=== PATIENT | female | born 1950 | race Caucasian/White ===

== ENCOUNTER → 2016-12-05 | Outpatient (CLI) | payer OTHER ==
[~2016-12-05] MED LIST: ATV1 PO; B-COCAP2 PO; CYM60 PO; DRV100 PO; GABA1CAP PO; GLC500 PO; LEVO75TA5 PO; LSX20; MULT-506 PO; NORT25CA PO; NRN/300 PO; PREG1CAP28 PO; PRLSR20 PO; SIMV10TA5 PO; SNQ10 PO; TRAM-10 PO; ZCRUNK; ZNTT/150 PO; [UNRECOGNIZED DRUG - OTHER]
[2016-12-05 14:23] LABS: BASO % 0.2 %; BASO ABS # 0.01 K/uL (0-0.2); COMPLETE YES; EOS % 3.4 %; LYMPH % 33.1 %; LYMPH ABS # 1.48 K/uL (1.2-3.4); MEAN CELL VOLUME 88.9 fL (80-100); MEAN CORPUSCULAR HEMOGLOBIN 29.3 pg (25-34); MEAN PLATELET VOLUME 9.8 fL (7.4-10.4); MONO % 8.3 %; PLATELET COUNT 281 K/uL (130-400); WHITE BLOOD COUNT 4.47 K/uL (4.8-10.8)
[2016-12-05 14:33] LABS: BLOOD UREA NITROGEN 12 mg/dl (7-18); GLUCOSE 88 mg/dl (70-99)
[2016-12-05 14:34] LABS: ALT/SGPT 27 U/L (12-78); AST/SGOT 17 U/L (15-37); BUN/CREATININE RATIO 15.2 (10-20); CALCIUM 9.2 mg/dl (8.5-10.1); CARBON DIOXIDE 29 mmol/L (21-32); CHLORIDE 103 mmol/L (98-107); CHOLESTEROL 168 mg/dl (0-200); CREATININE 0.81 mg/dl (0.60-1.20); MAGNESIUM 2.1 mg/dl (1.8-2.4); POTASSIUM 3.7 mmol/L (3.5-5.1); SODIUM 138 mmol/L (136-145); TRIGLYCERIDES 115 mg/dl (0-150); VERY LOW DENSITY LIPOPROT CALC 23 mg/dl
[2016-12-05 14:41] LABS: ALKALINE PHOSPHATASE 75 U/L (45-117); CHOLESTEROL/HDL RATIO 2.7; HDL CHOLESTEROL 62 mg/dl; LDL CHOLESTEROL CALCULATED 83 mg/dl; THYROID STIMULATING HORMONE 0.546 uIu/ml (0.300-4.500)
[2016-12-05 14:47] LABS: ESTIMATED AVERAGE GLUCOSE 114 mg/dl; HA1C FLAG Normal (Normal)
--- NOTE | 2017-01-04 09:00 | CODING QUERY MEDICAL NECESSITY ---
CQSUPPORTING DIAGNOSIS NEEDED A supporting diagnosis is required for the test/procedure performed on this patient in order for us to be reimbursed by the patient's insurance. Please provide a supporting diagnosis for the following test/procedure listed below next to the test name along with your signature. *If there is no additional diagnosis for this patient that would support the following test/procedure please document that below next to the test/procedure. Test(s)/Procedure(s) that require a supporting diagnosis: DOS 12/05/16 GLYCATED HEMOGLOBIN TEST Provider Signature: Date: Thank you Nilda Vázquez Health Information Management Once completed, please kindly fax back to [phone] For questions please call [phone]
== END | disposition home or self-care (01) ==
LOC: C.LABBC 10:35
PROVIDERS: ATTEND Nurse Practitioner Family
DX: K21.0 Gastro-esophageal reflux disease with esophagitis (principal); E88.81 Metabolic syndrome and other insulin resistance; E04.9 Nontoxic goiter, unspecified; E78.00 Pure hypercholesterolemia, unspecified; E03.9 Hypothyroidism, unspecified; G62.9 Polyneuropathy, unspecified

== ENCOUNTER → 2016-12-21 | Day surgery (SDC) | payer OTHER ==
[~2016-12-21] VITALS: Ht 157.5 cm; Wt 93.0 kg
[~2016-12-21] MED LIST changes: +FENTANYL CITRATE INJ 50 MCG/1 ML 2 ML VIAL ONE; +HEPARIN SOD (PORCINE) 1000 UNIT/ML 10 ML VIAL ONE; +MIDAZOLAM HCL 1 MG/ML 2ML VIAL ONE; +NITROGLYCERIN/D5W 100MCG/ML 20ML SYR ONE; +NiCARDipine HCL INJ 2.5 MG/ML 10 ML AMP ONE
[2016-12-21 11:08] VITALS: BP 155/75; PULSE 82; TEMP 36.5; O2SAT 95; Ht 157.5 cm; Wt 93.0 kg
--- NOTE | 2016-12-21 13:11 | History & Physical Bridge Note ---
H&P Re-Evaluation Bridge Note: I have examined the patient, reviewed the History & Physical and in the interval since the performance of the History & Physical I have noted the following changes of clinical significance: No changes noted
--- NOTE | 2016-12-21 13:11 | Procedure Note ---
Pre-Mod Sedation Assessment General Date of Moderate Sedation: Dec 21, 2016. Vital Signs: Vital Signs Past 12 Hours Date Time Temp Pulse Resp B/P (MAP) Pulse Ox O2 Delivery O2 Flow Rate FiO2 12/21/16 13:00 78 16 137/80 (99) 98 Room Air 12/21/16 11:08 36.5 82 16 155/75 95 Room Air Review Cardiovascular: regular rate, rhythm, no edema Abdomen: normal bowel sounds, non tender Lungs: chest non-tender, lungs clear Airway Class: II Pre-Sedation Airway Assessment Oral Cavity: WNL Able to Visualize Vocal Cords: No Short Thick Neck: No Hx of Sleep Apnea: No Smoking Status: Never Smoker Mallampati Classification: Class III ASA Classification: Class II Procedure Planning Contraindications-for Mod Sed: None Yes Notes The planned sedation has been discussed with the patient and consent obtained. I have identified the patient, determined the appropriateness of sedation and have assessed the patient immediately prior to the procedure. All medicine(s) and interventions are by my order.
--- NOTE | 2016-12-21 13:12 | Procedure Note ---
Post-Mod Sedation Assessment General Date of Moderate Sedation Dec 21, 2016. Vital Signs: Vital Signs Past 12 Hours Date Time Temp Pulse Resp B/P (MAP) Pulse Ox O2 Delivery O2 Flow Rate FiO2 12/21/16 13:00 78 16 137/80 (99) 98 Room Air 12/21/16 11:08 36.5 82 16 155/75 95 Room Air Review - Discharge Criteria Vital Signs Stable: Yes Alert/Oriented/Conversant: Yes Returned to Baseline Mental St: Yes Nausea Absent/Minimal: Yes Pain/Discomfort/Absent/Minimal: Yes Normal/Baseline Respirations: Yes Active Bleeding?: No Pt Received D/C Instructions: N/A Prescriptions Given: None Specific Proced. D/C Criteria Distal Pulses Present (Cardiac: Yes Groin site assessed-Card Cath: N/A Voided Prior To Discharge: N/A Discharged Patients Adult Escort/Transportation: Yes
--- NOTE | 2016-12-21 13:20 | Cardiac Catheterization ---
Procedure Note Procedure Date Dec 21, 2016. Pre-Procedure Diagnosis Positive Stress Test AUC Score 7 Post-Procedure Diagnosis Normal Coronary Arteries, Normal Intracardiac Pressures Procedure(s) Performed Coronary Angiography, Left Heart Cath Director Emergency Services Zachery Liner Helper(s) Juan Luis Estimated Blood Loss 10 Medication(s) Fentanyl, Heparin, Nitroglycerin, Versed, Lidocaine 1% Summary of Findings Indication: Dyspnea on exertion, Abnormal stress test Access: 6Fr Slender Right Radial Artery Catheters: [place], JR4 Findings: LM - Short left main, angiographically normal LAD - Moderate caliber vessel, angiographically normal Circumflex - Large caliber vessel, luminal irregularities proximally before gives off 2 OMs without significant disease. RCA - Dominant, moderate caliber vessel, luminal irregularities proximally LVEDP - 8 Arterial Closure: TR Band Summary: 1. Essentially normal coronary arteries 2. Normal intracardiac filling pressures Recommendations: Continued ASCVD risk factor modification Follow-up with primary care for further evaluation of non-cardiac causes of chest pain Hemodynamics Rest Ao: 114/65/88 Final Ao: 121/62/90 LV: 126/8 Recommendations Medical therapy and/or Counseling Specimens None Radiation Exposure (mGy) 748 Contrast (mls) 25 Fluids (cc crystalloids) 65 Drains None Anesthesia Moderate Procedural Complication(s) None Disposition Car Rental Deliverer Holding/Recovery ACC Data Cardiac Status Clinical evaluation leading to the procedure CAD Presntation: Positive Stress Test Anginal Classification: CCS III Heart Failure: No, NYHA Class: CCS I Cardiogenic Shock w/in 24Hrs: No Cardiac Arrest w/in 24Hrs: No Imaging studies past 6 months: Yes Stress studies past 6 months: Yes Stress Echocardiogram: Yes - Indeterminant Coronary Anatomy Dominant: Right Left Main (% Stenosis): Normal LAD (% Stenosis): Normal Circumflex (% Stenosis): Normal RCA (% Stenosis): Normal Diagnostic Physician's Name: Rip Bingham MD Status: Elective Closure Device Percutaneous Entry Location: Radial Closure Device: Radial Band Recommendations: Medical therapy and/or Counseling Intraprocedure Events Significant Dissection: No Perforation: No
--- NOTE | 2016-12-21 13:22 | Discharge Instructions ---
Discharge Instructions Procedure Procedure Date: Dec 21, 2016. Reason for Visit: Abnormal Stress Test Dr. Bingham To Do. Discharge Discharge Date: Dec 21, 2016. Discharge Diagnosis: Normal coronary arteries Last Recorded Wt (Kilograms): 93 Anesthesia Post Anesthesia Instructions: If you have had General Anesthesia or IV Sedation: * Do not drive today. * Resume driving when surgeon permits. * Do not make important decisions or sign legal documents today. * Call surgeon for: 1. Temperature elevations greater than 101 degrees F. 2. Uncontrollable pain. 3. Excessive bleeding. 4. Persistent nausea and vomiting. 5. Medication intolerance (nausea, vomiting or rash). * For nausea and vomiting use only clear liquids such as: tea, soda, bouillon until nausea subsides, then gradually increase diet as tolerated. * If you have any concerns or questions, call your surgeon's office. If physician is unavailable and it is an emergency, call 911 or go to the nearest emergency room. Instructions Activity Recommendations: limitations as noted below Recommended Home Diet: resume previous diet, diabetes diet Allergies: Coded Allergies: Meperidine (Verified Allergy, Intermediate, Rash/Some respiratory compromise, 08/03/11) Oxycodone (Verified Adverse Reaction, Mild, Itching, 08/03/11) Follow Up Additional Instructions: ACTIVITY RECOMMENDATIONS: It is common to feel weak and fatigue for a few days. * Do not drive or operate any motorized equipment for the next 2 days. * Limit stair usage (2 or 3 trips a day only) for the next 2 days. * Do not lift anything heavier than 10 pounds for the next three days. * Do not engage in vigorous exercise or any sports for the next five days. * You may shower the day after your procedure, but do not immerse the area for three days. Cleanse the site gently with soap and water. SPECIAL CARE INSTRUCTIONS: * You may replace the pressure dressing or band-aid the morning after the procedure. * After your procedure, it is normal to have a small bruise or small lump at the site. Examine your site daily for any change in the bruise or lump, redness, swelling, drainage or numbness. Notify your doctor if any change. BLEEDING: * If there is a small amount of bleeding at the site, lie down and apply firm pressure with a clean cloth for ten minutes. When the bleeding stops, lie quietly keeping the procedure limb straight for six hours. Notify your doctor as soon as possible. * If the bleeding does not stop after ten minutes or if there is a large amount of bleeding or spurting, call 911 immediately. Continue to lie down and hold firm pressure until help arrives. SKIN IRRITATION: * You may experience some redness and/or swelling in the area where radiation was administered. If any skin irritation occurs, please contact your family physician. FOLLOW UP VISIT: Keep any scheduled doctor appointments. Follow-up with: Primary care within next month Luis Alberto Wood Recommendations: Call your doctor if: * Temperature above 101 degrees * Pain not relieved by pain medicine ordered * There is increased drainage or redness from any incision * You have any unanswered questions or concerns. Your Doctors Instructions noted above were prepared by provider Eamon Bingham. Patient Signature Section: Patient Instructions Signature Page Margaret Kapoor Patient (or Guardian) Signature/Date: I have read and understand the instructions given to me by my caregivers. Caregiver/RN/Doctor Signature/Date: The above-named patient and/or guardian has received patient instructions on this date. + Original Patient Signature Page (only) stays with chart. Please make copy for patient.
[2016-12-21 16:00] VITALS: BP 115/62; PULSE 72; O2SAT 98
== END | disposition home or self-care (01) ==
LOC: C.CATH 10:20
PROVIDERS: ATTEND Internal Medicine Interventional Cardiology
DX: I20.8 Other forms of angina pectoris (principal); R07.9 Chest pain, unspecified; E88.81 Metabolic syndrome and other insulin resistance; E78.00 Pure hypercholesterolemia, unspecified; I10 Essential (primary) hypertension; F41.9 Anxiety disorder, unspecified; M79.7 Fibromyalgia; G62.9 Polyneuropathy, unspecified; K21.9 Gastro-esophageal reflux disease without esophagitis; E03.9 Hypothyroidism, unspecified; Z85.3 Personal history of malignant neoplasm of breast; Z80.6 Family history of leukemia; Z80.3 Family history of malignant neoplasm of breast; Z83.49 Family history of other endocrine, nutritional and metabolic diseases; Z79.84 Long term (current) use of oral hypoglycemic drugs

== ENCOUNTER → 2017-04-30 | Outpatient (CLI) | payer OTHER ==
[~2017-04-30] MED LIST changes: -ATV1 PO; -B-COCAP2 PO; -CYM60 PO; -DRV100 PO; -FENTANYL CITRATE INJ 50 MCG/1 ML 2 ML VIAL ONE; -GLC500 PO; -HEPARIN SOD (PORCINE) 1000 UNIT/ML 10 ML VIAL ONE; -LSX20; -MIDAZOLAM HCL 1 MG/ML 2ML VIAL ONE; -MULT-506 PO; -NITROGLYCERIN/D5W 100MCG/ML 20ML SYR ONE; -NiCARDipine HCL INJ 2.5 MG/ML 10 ML AMP ONE; -PREG1CAP28 PO; -SNQ10 PO; -ZCRUNK; -[UNRECOGNIZED DRUG - OTHER]
== END | disposition home or self-care (01) ==
LOC: C.LABBC 13:52
PROVIDERS: ATTEND Nurse Practitioner Family
DX: E03.9 Hypothyroidism, unspecified (principal)

== ENCOUNTER → 2017-05-24 | Day surgery (SDC) | payer OTHER ==
[2017-05-09 11:35] VITALS: BMI 36.0
[~2017-05-24] VITALS: Ht 157.5 cm; Wt 90.9 kg
[~2017-05-24] MED LIST changes: +ACET325T96 PO; +ASCA500 PO; +CHOL400T5 PO; +CYAN100020 PO; +GLC/500 PO; +LIDOCAINE HCL 2% 2 ML VIAL (20MG/ML) ONE; -NRN/300 PO; -PRLSR20 PO; +PROPOFOL IV EMULSION 10 MG/ML 20 ML VIAL IV ONE; +SODIUM CHLORIDE 0.9% 500ML 500 ML IV ONE; +THIA100T11 PO; -TRAM-10 PO; +VITATAB19 PO
[2017-05-24 12:37] VITALS: Ht 157.5 cm; Wt 90.9 kg
--- NOTE | 2017-05-24 13:03 | Endo History and Physical ---
History & Physical Date of Service: May 24, 2017. Chief Complaint: Epigastric pain Referring Physician: Ty Chan History of Present Illness 66 yo CF who presents for EGD secondary to epigastric abdominal pain. Past Surgical History Hx Cardiac Surgery: Yes (CARDIAC CATH NO STENT-12/2106) Hx Internal Defibrillator: No Hx Abdominal Surgery: Yes (CHOLECYSTECTOMY; APPENDECTOMY; HYSTERECTOMY.) Hx Post-Op Nausea and Vomiting: Yes (PONV) Hx Cancer Surgery: Yes (DOUBLE MASTECTOMY "IN THE 70'S", ) Hx Thoracic Surgery: No Hx Orthopedic: Yes ("WRIST AND KNEE SURGERY") Hx Urinary Tract Surgery: No Social History Smoking Status: Never Smoker Hx Substance Use: No Hx Alcohol Use: No Allergies Coded Allergies: Meperidine (Verified Allergy, Intermediate, Rash/Some respiratory compromise, 05/09/17) Oxycodone (Verified Adverse Reaction, Mild, Itching, 05/09/17) Current Medications Reported Home Medications Medications Dose Route/Sig Max Daily Dose Days Date Category Dose Instructions Glucophage (Metformin Hcl) 500 Mg Tab 500 Mg PO BID 05/09/17 Reported Tylenol (Acetaminophen) 325 Mg Tab 650 Mg PO HS 05/09/17 Reported Pamelor (Nortriptyline HCl) 25 Mg Cap 50 Mg PO HS 12/21/16 Reported Neurontin (Gabapentin) 100 Mg Cap 1 Cap PO HS 30 12/21/16 Reported Take with 300mg cap at bedtime for total of 400 mg Levothyroxine Sodium 75 Mcg Tab 1 Tab PO QAM 30 12/21/16 Reported Zocor (Simvastatin) 10 Mg Tab 1 Tab PO HS 30 12/21/16 Reported Zantac (Ranitidine HCl) 150 Mg Tab 150 Mg PO BID 06/14/09 Reported Vital Signs Weight (Kilograms): 90.91 Height (Feet): 5 Height (Inches): 2 Physical Exam General Appearance: WD/WN, no apparent distress Respiratory/Chest: Auscultation: breath sounds normal Cardiovascular: Heart Auscultation: RRR Abdomen: Bowel Sounds: normal Inspection & Palpation: soft, non-distended, no tenderness, guarding & rebound Assessment and Plan Assessment: 66 yo CF who presents for EGD secondary to epigastric abdominal pain. Plan: Proceed with EGD.
--- NOTE | 2017-05-24 13:25 | GI REPORT ---
Procedure Date: 05/24/2017 1:08 PM Procedure: Upper GI endoscopy Indications: Epigastric abdominal pain, Chest pain (non cardiac) Medicines: Monitored Anesthesia Care Complications: No immediate complications. Estimated Blood Loss: Estimated blood loss: none. Procedure: Pre-Anesthesia Assessment: - Prior to the procedure, a History and Physical was performed, and patient medications and allergies were reviewed. The patient's tolerance of previous anesthesia was also reviewed. The risks and benefits of the procedure and the sedation options and risks were discussed with the patient. All questions were answered, and informed consent was obtained. Prior Anticoagulants: The patient has taken no previous anticoagulant or antiplatelet agents. ASA Grade Assessment: III - A patient with severe systemic disease. After reviewing the risks and benefits, the patient was deemed in satisfactory condition to undergo the procedure. After obtaining informed consent, the endoscope was passed under direct vision. Throughout the procedure, the patient's blood pressure, pulse, and oxygen saturations were monitored continuously. The Scope was introduced through the mouth, and advanced to the second part of duodenum. The upper GI endoscopy was accomplished without difficulty. The patient tolerated the procedure well. Findings: The esophagus was normal. A small hiatal hernia was present. Localized moderate inflammation characterized by erythema was found in the gastric antrum. Biopsies were taken with a cold forceps for histology. The examined duodenum was normal. Impression: - Normal esophagus. - Small hiatal hernia. - Gastritis. Biopsied. - Normal examined duodenum. Recommendation: - Resume previous diet. - Continue present medications. - Await pathology results. - Return to primary care physician as previously scheduled. Sumit Sultana, 05/24/2017 1:25:30 PM This report has been signed electronically. Note Initiated On: 05/24/2017 1:08 PM I attest to the content of the Intraoperative Record and orders documented therein, exceptions below
--- NOTE | 2017-05-24 13:29 | Discharge Instructions ---
Endoscopy Patient Instructions Date / Procedure(s) Performed May 24, 2017. EGD Allergy Information Coded Allergies: Meperidine (Verified Allergy, Intermediate, Rash/Some respiratory compromise, 05/09/17) Oxycodone (Verified Adverse Reaction, Mild, Itching, 05/09/17) Discharge Date / Findings May 24, 2017. Gastritis s/p biopsies Hiatal hernia Medication Instructions 1) Start Pantoprazole 40mg by mouth each morning 1/2 hour prior to breakfast. 2) Take Ranitidine 150mg by mouth each evening prior to bedtime 3) OK to resume all other medications today as prescribed Reported Home Medications Medications Dose Route/Sig Max Daily Dose Days Date Category Dose Instructions Vitamin B12 (Cyanocobalamin) 1,000 Mcg Tab 1,000 Mcg PO DAILY 05/24/17 Reported Vitamin D (Cholecalciferol) 400 Unit Tab 400 Mg PO DAILY 05/24/17 Reported Vitamin C (Ascorbic Acid) 500 Mg Tab 500 Mg PO DAILY 05/24/17 Reported Vitamin B-1 (Thiamine HCl) 100 Mg Tab 100 Mg PO DAILY 05/24/17 Reported Vitamin A (Vitamin A-Beta Carotene) 1 Tab Tab 1 Tab PO DAILY 05/24/17 Reported Glucophage (Metformin Hcl) 500 Mg Tab 500 Mg PO BID 05/09/17 Reported Tylenol (Acetaminophen) 325 Mg Tab 650 Mg PO HS 05/09/17 Reported Pamelor (Nortriptyline HCl) 25 Mg Cap 50 Mg PO HS 12/21/16 Reported Neurontin (Gabapentin) 100 Mg Cap 1 Cap PO HS 30 12/21/16 Reported Take with 300mg cap at bedtime for total of 400 mg Levothyroxine Sodium 75 Mcg Tab 1 Tab PO QAM 30 12/21/16 Reported Zocor (Simvastatin) 10 Mg Tab 1 Tab PO HS 30 12/21/16 Reported Zantac (Ranitidine HCl) 150 Mg Tab 150 Mg PO BID 06/14/09 Reported Provider Instructions Activity Restrictions - No exercising or heavy lifting for 24 hours. - Do not drink alcohol the day of the procedure. - Do not drive a car or operate machinery until the day after the procedure. - Do not make any important decisions or sign important papers in 24 hours after the procedure. Following Day: - Return to full activity which may include returning to work/school. Diet Start your diet with liquids and light foods (jello, soup, juice, toast). Then eat your usual diet if not nauseated. Treatment For Common After Affects For mild abdominal pain, bloating, or excessive gas: - Rest - Eat lightly - Lie on right side Follow-Up Information Follow-up with JONH NOGUERA NP as scheduled Anesthesia Information What You Should Know You have had a procedure that required some medicine to reduce anxiety and discomfort. This treatment is called moderate sedation. After receiving the treatment, you may be sleepy, but you will be able to breathe on your own. The effects of the treatment may last for several hours. Follow these instructions along with Activity/Diet recommendations noted above: * Do NOT do anything where dizziness or clumsiness would be dangerous. * Rest quietly at home today, then you can be up and about tomorrow. * Have a responsible person stay with you the rest of today. * You may have had an I.V. today. If so, you may take the dressing off later today. Recommendations Call your doctor if: * Trouble breathing * Continuous vomiting for more than 24 hours * Temperature above 101 degrees * Severe abdominal pain or bloating * Pain not relieved by pain medicine ordered * There is increased drainage or redness from any incision * A large amount of rectal bleeding greater than 2-3 tablespoons. (If you had a polyp/s removed or have hemorrhoids, a small amount of blood - from the rectum is to be expected.) * You have any unanswered questions or concerns. IN THE EVENT OF A SERIOUS EMERGENCY, GO TO THE NEAREST EMERGENCY ROOM Your discharge instructions were prepared by provider Sumit Sultana. Patient Instructions Signature Page Margaret Kapoor Patient (or Guardian) Signature/Date: I have read and understand the instructions given to me by my caregivers. Caregiver/RN/Doctor Signature/Date: The above-named patient and/or guardian has received patient instructions on this date. + Original Patient Signature Page (only) stays with chart. Please make copy for patient.
[2017-05-24 13:47] VITALS: BP 154/74; PULSE 72; O2SAT 96
--- NOTE | 2017-05-24 13:47 | Anesthesiology Progress Note ---
Anesthesia Post Op Note Date & Time May 24, 2017 at 13:47 Vital Signs Pain Intensity: 0 Vital Signs Past 12 Hours Date Time Temp Pulse Resp B/P (MAP) Pulse Ox O2 Delivery O2 Flow Rate FiO2 05/24/17 13:38 72 18 168/60 (96) 100 Room Air 05/24/17 13:27 76 18 155/76 (102) 99 Room Air 05/24/17 12:36 36.7 85 18 185/79 (114) 100 Room Air Notes Mental Status: alert / awake / arousable, participated in evaluation Pt Amnestic to Procedure: Yes Nausea / Vomiting: adequately controlled Pain: adequately controlled Airway Patency, RR, SpO2: stable & adequate BP & HR: stable & adequate Hydration State: stable & adequate Anesthetic Complications: no major complications apparent
== END | disposition home or self-care (01) ==
LOC: C.GI 11:56
PROVIDERS: ATTEND Internal Medicine
DX: R10.13 Epigastric pain (principal); R07.89 Other chest pain; K29.70 Gastritis, unspecified, without bleeding; K44.9 Diaphragmatic hernia without obstruction or gangrene; E11.9 Type 2 diabetes mellitus without complications; E66.9 Obesity, unspecified; K21.9 Gastro-esophageal reflux disease without esophagitis; Z85.3 Personal history of malignant neoplasm of breast; Z90.49 Acquired absence of other specified parts of digestive tract; Z90.710 Acquired absence of both cervix and uterus; Z90.13 Acquired absence of bilateral breasts and nipples

== ENCOUNTER → 2017-06-20 | Outpatient (CLI) | payer OTHER ==
[~2017-06-20] MED LIST changes: -LIDOCAINE HCL 2% 2 ML VIAL (20MG/ML) ONE; -PROPOFOL IV EMULSION 10 MG/ML 20 ML VIAL IV ONE; -SODIUM CHLORIDE 0.9% 500ML 500 ML IV ONE
--- NOTE | 2017-06-20 09:44 | DIAGNOSTIC IMAGING REPORT ---
ABDOMEN FOR HERNIA CLINICAL HISTORY: Acute left lower quadrant pain. COMPARISON STUDY: Abdominal series June 14, 2009. FINDINGS: No left lower quadrant abdominal hernia was identified by sonography. IMPRESSION: No left lower quadrant abdominal hernia identified at site of maximal pain. Electronically signed by: Horacio Dawn M.D. 06/20/2017 9:43 AM Dictated Date/Time: 06/20/2017 9:42 AM
== END | disposition home or self-care (01) ==
LOC: C.ULTR 09:13
PROVIDERS: ATTEND Nurse Practitioner Family
DX: R10.32 Left lower quadrant pain (principal)

== ENCOUNTER → 2017-12-05 | Outpatient (CLI) | payer OTHER ==
[~2017-12-05] MED LIST changes: +ACET-1693 PO; -ACET325T96 PO; +GABA-1693 PO; -GABA1CAP PO; +RANI150T85 PO; +THIA100T10 PO; -THIA100T11 PO; -ZNTT/150 PO
[2017-12-05 13:05] LABS: BASO % 0.3 %; BASO ABS # 0.01 K/uL (0-0.2); EOS % 4.3 %; EOS ABS # 0.17 K/uL (0-0.5); HEMATOCRIT 39.9 % (37-47); HEMOGLOBIN 13.2 g/dL (12.0-16.0); LYMPH % 29.4 %; LYMPH ABS # 1.16 K/uL (1.2-3.4); MEAN CELL VOLUME 89.5 fL (80-100); MEAN CORPUSCULAR HEMOGLOBIN 29.6 pg (25-34); MEAN CORPUSCULAR HGB CONC 33.1 g/dl (32-36); MEAN PLATELET VOLUME 10.2 fL (7.4-10.4); MONO % 7.9 %; MONO ABS # 0.31 K/uL (0.11-0.59); NEUT % 58.1 %; NEUT ABS # 2.29 K/uL (1.4-6.5); PLATELET COUNT 260 K/uL (130-400); RED CELL DISTRIBUTION WIDTH CV 13.2 % (11.5-14.5); RED CELL DISTRIBUTION WIDTH SD 43.6 fL (36.4-46.3); WHITE BLOOD COUNT 3.94 K/uL (4.8-10.8)
[2017-12-05 13:32] LABS: ALKALINE PHOSPHATASE 75 U/L (45-117); ALT/SGPT 28 U/L (12-78); AST/SGOT 20 U/L (15-37); BLOOD UREA NITROGEN 12 mg/dl (7-18); CARBON DIOXIDE 29 mmol/L (21-32); CHOLESTEROL 168 mg/dl (0-200); CREATININE 0.77 mg/dl (0.60-1.20); GLUCOSE 89 mg/dl (70-99); LDL CHOLESTEROL CALCULATED 82 mg/dl; POTASSIUM 3.7 mmol/L (3.5-5.1); SODIUM 138 mmol/L (136-145); TOTAL PROTEIN 7.8 gm/dl (6.4-8.2)
[2017-12-05 13:45] LABS: HEMOGLOBIN A1C 5.7 % (4.5-5.6)
[2017-12-05 14:08] LABS: CREATININE RANDOM URINE 89.7 mg/dl
== END | disposition home or self-care (01) ==
LOC: C.LABBC 09:34
PROVIDERS: ATTEND Nurse Practitioner Family
DX: E78.00 Pure hypercholesterolemia, unspecified (principal); E88.81 Metabolic syndrome and other insulin resistance; E03.9 Hypothyroidism, unspecified; E79.0 Hyperuricemia without signs of inflammatory arthritis and tophaceous disease; M79.7 Fibromyalgia; E16.1 Other hypoglycemia; E16.3 Increased secretion of glucagon; E83.19 Other disorders of iron metabolism

== ENCOUNTER → 2017-12-12 | Outpatient (CLI) | payer OTHER ==
--- NOTE | 2017-12-12 15:17 | DIAGNOSTIC IMAGING REPORT ---
L-SPINE MIN 4 VIEWS ROUTINE CLINICAL HISTORY: M54.5 Lower back pain COMPARISON STUDY: No previous studies for comparison. FINDINGS: There are surgical clips within the right upper quadrant consistent with a prior cholecystectomy. There is no pathologic bowel dilatation. There is a mild lumbar dextroscoliosis. There are multilevel degenerative changes most pronounced the L3-4 level. No acute fractures or traumatic subluxations are visualized. There is narrowing of the AP diameter spinal canal. Underlying spinal stenosis most be considered. IMPRESSION: 1. No acute fractures 2. Dextroscoliosis 3. Multilevel degenerative changes most pronounced the L3-4 level. Electronically signed by: Pedrito Rivas M.D. 12/12/2017 3:16 PM Dictated Date/Time: 12/12/2017 3:15 PM
== END | disposition home or self-care (01) ==
LOC: C.RAD 14:29
PROVIDERS: ATTEND Nurse Practitioner Family
DX: M54.5 Low back pain (principal)